=== PATIENT | female | born 2000 | race African-American/Black ===

== ENCOUNTER 2021-11-25 10:42 | Emergency (ER) | payer MEDICAID ==
[~2021-11-25] VITALS: Ht 160 cm; Wt 60.0 kg
[2021-11-25 11:11] VITALS: BP 107/72
== END 2021-11-25 15:10 | disposition home or self-care (01) ==
LOC: ER 10:42
DX: B34.9 Viral infection, unspecified (principal); D57.1 Sickle-cell disease without crisis
CPT/HCPCS: 99281

== ENCOUNTER 2022-03-14 11:36 | Emergency (ER) | payer MEDICAID ==
[~2022-03-14] VITALS: Ht 165.1 cm; Wt 70.0 kg
[2022-03-14] MEDS ORDERED: KETOROLAC 30MG/ML VIAL IV STA (12:18)
[2022-03-14 12:20] LABS: HEMATOCRIT. 39.8 % (36.0-48.0); HEMOGLOBIN. 13.8 g/dL (12.0-16.0); MEAN CORPUSCULAR HEMOGLOBIN 27.9 pg (28.0-32.0); MEAN CORPUSCULAR VOLUME 80.7 fL (81.0-99.0); PLATELET 338 x1000/uL (130-400); RED BLOOD CELL COUNT 4.93 mill/uL (4.2-5.4); RED CELL DISTRIBUTION WIDTH 12.9 % (11.6-14.6)
[2022-03-14 12:30] LABS: CLARITY URINE CLEAR (CLEAR); COLOR URINE YELLOW (YELLOW); KETONES URINE NEGATIVE (NEGATIVE); LEUKOCYTE ESTERASE URINE 1+ (NEGATIVE); NITRITE URINE NEGATIVE (NEGATIVE); OCCULT BLOOD URINE 1+ (NEGATIVE); PROTEIN URINE NEGATIVE (NEGATIVE); SPECIFIC GRAVITY URINE 1.015 (1.005-1.030)
[2022-03-14] MEDS ORDERED: SODIUM CHLORIDE 0.9% 1,000 ML IV ONE (12:30)
[2022-03-14 12:37] LABS: CHLORIDE 108 mEq/L (98-107)
[2022-03-14 12:48] LABS: PLATELET ESTIMATE NORMAL
[2022-03-14 12:49] LABS: HCG SCREEN NEGATIVE
[2022-03-14] MEDS ORDERED: DEXT30SU87 PO (13:20)
[2022-03-14] MEDS ORDERED: CEPH500C2 MT (13:20)
[2022-03-14] MEDS ORDERED: IBUP-2028 MT (13:20)
[2022-03-14] MEDS ORDERED: KETOROLAC 15MG/ML VIAL IV ONE (14:00)
[2022-03-14 14:18] VITALS: BP 118/83
[2022-03-15] MEDS ORDERED: P50 PO (10:37)
[2022-03-15] MEDS ORDERED: ALBU18HF2 INH (10:37)
[2022-03-15] MEDS ORDERED: ONDA4TAB5 PO (10:38)
[2022-03-15] MEDS ORDERED: IBUP-2028 MT (10:39)
[2022-03-15] MEDS ORDERED: TOPUD PO (10:39)
== END 2022-03-14 14:20 | disposition home or self-care (01) ==
LOC: ER 11:36
DX: R05.9 Cough, unspecified (principal); N39.0 Urinary tract infection, site not specified; J45.909 Unspecified asthma, uncomplicated
CPT/HCPCS: 36415; 71045; 80053; 81003; 84703; 85025; 85044; 96361; 96374; 96376; 99284; J1885; J7030

== ENCOUNTER 2022-03-15 08:35 | Emergency (ER) | payer MEDICAID ==
[~2022-03-15] VITALS: Ht 167.6 cm; Wt 55.0 kg
[~2022-03-15 08:35] MED LIST: CEPH500C2 MT; DEXT30SU87 PO; IBUP-2028 MT
[2022-03-15] MEDS ORDERED: ONDANSETRON 4MG ODT PO ONE (09:15)
[2022-03-15 09:36] LABS: HEMATOCRIT. 40.9 % (36.0-48.0); HEMOGLOBIN. 14.2 g/dL (12.0-16.0); MEAN CORPUSCULAR HEMOGLOBIN 28.2 pg (28.0-32.0); PLATELET 308 x1000/uL (130-400); RED BLOOD CELL COUNT 5.04 mill/uL (4.2-5.4); RED CELL DISTRIBUTION WIDTH 13.1 % (11.6-14.6)
[2022-03-15 09:43] LABS: CHLORIDE 109 mEq/L (98-107)
[2022-03-15 10:07] LABS: PLATELET ESTIMATE NORMAL
[2022-03-15] MEDS ORDERED: ALBU18HF2 INH (10:37)
[2022-03-15] MEDS ORDERED: P50 PO (10:37)
[2022-03-15] MEDS ORDERED: ONDA4TAB5 PO (10:38)
[2022-03-15] MEDS ORDERED: TOPUD PO (10:39)
[2022-03-15] MEDS ORDERED: IBUP-2028 MT (10:39)
[2022-03-15] MEDS ORDERED: ACETAMINOPHEN 325MG TABLET PO ONE (10:45)
[2022-03-15] MEDS ORDERED: IBUPROFEN 400MG TABLET PO ONE (10:45)
[2022-03-15 11:05] VITALS: BP 117/86
== END 2022-03-15 11:08 | disposition home or self-care (01) ==
LOC: ER 08:35
DX: M79.18 Myalgia, other site (principal); R05.9 Cough, unspecified; Z20.822 Contact with and (suspected) exposure to COVID-19; R00.0 Tachycardia, unspecified; R11.10 Vomiting, unspecified; R79.1 Abnormal coagulation profile; D57.3 Sickle-cell trait; J45.909 Unspecified asthma, uncomplicated
CPT/HCPCS: 36415; 71045; 80048; 85025; 85379; 87426; 93005; 99285; Q0162

== ENCOUNTER 2022-06-07 18:44 | Emergency (ER) | payer MEDICAID ==
[~2022-06-07] VITALS: Ht 162.6 cm; Wt 59.0 kg
[~2022-06-07 18:44] MED LIST changes: +ALBU18HF2 INH; +ONDA4TAB5 PO; +P50 PO; +TOPUD PO
[2022-06-07 19:16] VITALS: BP 128/83
[2022-06-07] MEDS ORDERED: TETRACAINE 0.5% OPHTH DROPS 4ML BOTHEYE ONE (21:15)
[2022-06-07] MEDS ORDERED: FLUORESCEIN SODIUM 1MG/STRIP BOTHEYE ONE (21:15)
[2022-06-07] MEDS ORDERED: SULF1TAB48 MT (21:18)
[2022-06-07] MEDS ORDERED: NAPR-1176 MT (21:18)
[2022-06-07] MEDS ORDERED: PEG15DRO14 EACHEYE (21:18)
== END 2022-06-07 21:27 | disposition home or self-care (01) ==
LOC: ER 18:44
DX: H00.014 Hordeolum externum left upper eyelid (principal)
CPT/HCPCS: 99281

== ENCOUNTER 2022-08-06 10:26 | Emergency (ER) | payer MEDICAID ==
[~2022-08-06] VITALS: Ht 160 cm; Wt 59.0 kg
[~2022-08-06 10:26] MED LIST changes: +NAPR-1176 MT; +PEG15DRO14 EACHEYE; +SULF1TAB48 MT
[2022-08-06 11:07] VITALS: BP 114/59
[2022-08-06] MEDS ORDERED: ALBUTEROL (0.083%) 2.5MG/3ML NEB HHN ONE (12:15)
[2022-08-06] MEDS ORDERED: CETIRIZINE 10MG TABLET PO SCH (13:00)
[2022-08-06] MEDS ORDERED: CETI10CA2 PO (14:08)
[2022-08-07] MEDS ORDERED: CETIRIZINE 10MG TABLET PO SCH (09:00)
== END 2022-08-06 14:35 | disposition home or self-care (01) ==
LOC: ER 10:26
DX: J06.9 Acute upper respiratory infection, unspecified (principal); J45.909 Unspecified asthma, uncomplicated; F17.210 Nicotine dependence, cigarettes, uncomplicated
CPT/HCPCS: 99282; Z7610

== ENCOUNTER 2022-09-17 11:05 | Emergency (ER) | payer MEDICAID ==
[~2022-09-17] VITALS: Ht 160 cm; Wt 50.0 kg
[~2022-09-17 11:05] MED LIST changes: +CETI10CA2 PO
[2022-09-17 11:12] VITALS: BP 117/72
[2022-09-17] MEDS ORDERED: MAGNESIUM/ALUMINUM HYDROXIDE/SIMETHICONE 30ML UDC PO STA (11:22)
[2022-09-17] MEDS ORDERED: ONDANSETRON HCL 4MG/2ML INJ IV STA (11:22)
[2022-09-17] MEDS ORDERED: SODIUM CHLORIDE 0.9% 1,000 ML IV ONE (11:30)
[2022-09-17 12:32] LABS: BASOPHILS % 0.9 % (0.0-2.0); EOSINOPHILS % 3.2 % (0.0-5.0); HEMATOCRIT. 42.8 % (36.0-48.0); HEMOGLOBIN. 14.5 g/dL (12.0-16.0); LYMPHOCYTES % 20.4 % (20.0-50.0); MEAN CORPUSCULAR VOLUME 82.7 fL (81.0-99.0); MEAN PLATELET VOLUME 7.7 fl (7.4-10.4); MONOCYTES % 3.4 % (2.0-8.0); NEUTROPHILS % 72.1 % (40.0-76.0); PLATELET 428 x1000/uL (130-400); RED BLOOD CELL COUNT 5.17 mill/uL (4.2-5.4); RED CELL DISTRIBUTION WIDTH 13.7 % (11.6-14.6)
[2022-09-17 12:33] LABS: CLARITY URINE CLEAR (CLEAR); COLOR URINE YELLOW (YELLOW); KETONES URINE NEGATIVE (NEGATIVE); LEUKOCYTE ESTERASE URINE 3+ (NEGATIVE); NITRITE URINE NEGATIVE (NEGATIVE); OCCULT BLOOD URINE 3+ (NEGATIVE); PH URINE 6.5 (4.5-8.0); PROTEIN URINE NEGATIVE (NEGATIVE); SPECIFIC GRAVITY URINE 1.019 (1.005-1.030)
[2022-09-17 12:56] LABS: HCG SCREEN NEGATIVE
[2022-09-17 13:25] LABS: *AMPHETAMINES SCREEN URINE NEGATIVE (NEGATIVE); *BARBITURATES SCREEN URINE NEGATIVE (NEGATIVE); *BENZODIAZEPINES SCREEN URINE NEGATIVE (NEGATIVE); *COCAINE SCREEN URINE NEGATIVE (NEGATIVE); METHADONE URINE SCREEN NEGATIVE (NEGATIVE); OPIATES URINE SCREEN NEGATIVE (NEGATIVE); PHENCYCLIDINE URINE SCREEN NEGATIVE (NEGATIVE)
[2022-09-17 13:32] LABS: CANNABINOID URINE SCREEN PRESUMTIVE POSITIVE (NEGATIVE)
[2022-09-17 14:20] LABS: CHLORIDE 108 mEq/L (98-107)
[2022-09-17 14:32] LABS: ETHANOL BLOOD < 10 mg/dL
[2022-09-17] MEDS ORDERED: ACET-2708 MT (14:49)
[2022-09-17] MEDS ORDERED: METO-293 MT (14:49)
== END 2022-09-17 15:09 | disposition home or self-care (01) ==
LOC: ER 11:05
DX: R11.2 Nausea with vomiting, unspecified (principal); R82.81 Pyuria; R53.1 Weakness; R51.9 Headache, unspecified; J45.909 Unspecified asthma, uncomplicated
CPT/HCPCS: 36415; 80053; 80305; 80320; 81003; 83690; 84703; 85025; 87077; 87086; 87804; 96361; 96374; 99283; J2405; J7030; G0480

== ENCOUNTER 2022-12-01 08:19 | Emergency (ER) | payer MEDICAID ==
[~2022-12-01] VITALS: Ht 160 cm; Wt 68.0 kg
[~2022-12-01 08:19] MED LIST changes: +ACET-2708 MT; +METO-293 MT
[2022-12-01 08:25] VITALS: BP 107/73
[2022-12-01] MEDS ORDERED: ONDANSETRON HCL 4MG/2ML INJ IV STA (08:40)
[2022-12-01] MEDS ORDERED: SODIUM CHLORIDE 0.9% 1,000 ML IV ONE (08:45)
[2022-12-01 09:28] LABS: BASOPHILS % 0.6 % (0.0-2.0); EOSINOPHILS % 9.5 % (0.0-5.0); HEMATOCRIT. 38.4 % (36.0-48.0); HEMOGLOBIN. 13.2 g/dL (12.0-16.0); LYMPHOCYTES % 30.5 % (20.0-50.0); MEAN CORPUSCULAR HEMOGLOBIN 28.4 pg (28.0-32.0); MEAN PLATELET VOLUME 7.4 fl (7.4-10.4); MONOCYTES % 4.5 % (2.0-8.0); NEUTROPHILS % 54.9 % (40.0-76.0); PLATELET 351 x1000/uL (130-400); RED BLOOD CELL COUNT 4.63 mill/uL (4.2-5.4); RED CELL DISTRIBUTION WIDTH 13.4 % (11.6-14.6)
[2022-12-01 09:37] LABS: CHLORIDE 109 mEq/L (98-107)
[2022-12-01 09:45] LABS: ETHANOL BLOOD < 10 mg/dL
[2022-12-01 09:48] LABS: HCG SCREEN NEGATIVE
[2022-12-01 10:15] LABS: CLARITY URINE CLOUDY (CLEAR); COLOR URINE YELLOW (YELLOW); KETONES URINE NEGATIVE (NEGATIVE); LEUKOCYTE ESTERASE URINE TRACE (NEGATIVE); NITRITE URINE NEGATIVE (NEGATIVE); OCCULT BLOOD URINE 2+ (NEGATIVE); PROTEIN URINE NEGATIVE (NEGATIVE); SPECIFIC GRAVITY URINE 1.015 (1.005-1.030); UROBILINOGEN URINE 0.2 E.U./dL (0.2-1.0)
[2022-12-01 10:51] LABS: *AMPHETAMINES SCREEN URINE NEGATIVE (NEGATIVE); *BARBITURATES SCREEN URINE NEGATIVE (NEGATIVE); *BENZODIAZEPINES SCREEN URINE NEGATIVE (NEGATIVE); *COCAINE SCREEN URINE NEGATIVE (NEGATIVE); METHADONE URINE SCREEN NEGATIVE (NEGATIVE); OPIATES URINE SCREEN NEGATIVE (NEGATIVE); PHENCYCLIDINE URINE SCREEN NEGATIVE (NEGATIVE)
[2022-12-01 10:56] LABS: CANNABINOID URINE SCREEN PRESUMTIVE POSITIVE (NEGATIVE)
[2022-12-01] MEDS ORDERED: OMEP20CA14 MT (12:09)
[2022-12-01] MEDS ORDERED: NITR-87 MT (12:09)
[2022-12-01] MEDS ORDERED: ONDA4TAB11 PO (12:09)
== END 2022-12-01 12:43 | disposition home or self-care (01) ==
LOC: ER 08:19
DX: R11.2 Nausea with vomiting, unspecified (principal); R63.1 Polydipsia
CPT/HCPCS: 36415; 80053; 80305; 80320; 81003; 81025; 83690; 84703; 85025; 96361; 96374; 99283; J2405; J7030; G0480

== ENCOUNTER 2022-12-08 11:06 | Emergency (ER) | payer MEDICAID ==
[~2022-12-08] VITALS: Ht 165.1 cm; Wt 75.0 kg
[~2022-12-08 11:06] MED LIST changes: +NITR-87 MT; +OMEP20CA14 MT; +ONDA4TAB11 PO
[2022-12-08 11:10] VITALS: BP 126/89
[2022-12-08] MEDS ORDERED: ONDANSETRON HCL 4MG TABLET PO ONE (13:00)
[2022-12-08 13:11] LABS: BASOPHILS % 0.3 % (0.0-2.0); EOSINOPHILS % 7.9 % (0.0-5.0); HEMATOCRIT. 42.9 % (36.0-48.0); HEMOGLOBIN. 15.1 g/dL (12.0-16.0); LYMPHOCYTES % 22.1 % (20.0-50.0); MEAN CORPUSCULAR VOLUME 82.3 fL (81.0-99.0); MEAN PLATELET VOLUME 7.3 fl (7.4-10.4); MONOCYTES % 4.5 % (2.0-8.0); NEUTROPHILS % 65.2 % (40.0-76.0); PLATELET 410 x1000/uL (130-400); RED BLOOD CELL COUNT 5.21 mill/uL (4.2-5.4); RED CELL DISTRIBUTION WIDTH 13.1 % (11.6-14.6)
[2022-12-08 13:15] LABS: CHLORIDE 104 mEq/L (98-107)
[2022-12-08 13:17] LABS: CLARITY URINE CLEAR (CLEAR); COLOR URINE YELLOW (YELLOW); KETONES URINE 1+ (NEGATIVE); LEUKOCYTE ESTERASE URINE NEGATIVE (NEGATIVE); NITRITE URINE NEGATIVE (NEGATIVE); OCCULT BLOOD URINE NEGATIVE (NEGATIVE); PH URINE 7.5 (4.5-8.0); PROTEIN URINE NEGATIVE (NEGATIVE); SPECIFIC GRAVITY URINE 1.015 (1.005-1.030); UROBILINOGEN URINE 0.2 E.U./dL (0.2-1.0)
[2022-12-08 13:42] LABS: HCG SCREEN NEGATIVE
[2022-12-08] MEDS ORDERED: ONDA4TAB50 MT (13:43)
== END 2022-12-08 13:57 | disposition home or self-care (01) ==
LOC: ER 11:06
DX: R11.2 Nausea with vomiting, unspecified (principal)
CPT/HCPCS: 36415; 80053; 81003; 81025; 83690; 84703; 85025; 99283; Q0162

== ENCOUNTER 2023-03-22 11:31 | Emergency (ER) | payer MEDICAID ==
[~2023-03-22] VITALS: Ht 160 cm; Wt 54.0 kg
[~2023-03-22 11:31] MED LIST changes: +ONDA4TAB50 MT
[2023-03-22 11:54] VITALS: BP 123/79
[2023-03-22] MEDS ORDERED: IBUPROFEN 600MG TABLET PO ONE (12:15)
[2023-03-22] MEDS ORDERED: LORATADINE 10MG TABLET PO SCH (12:15)
== END 2023-03-22 13:40 | disposition home or self-care (01) ==
LOC: ER 12:31
DX: S63.601A Unspecified sprain of right thumb, initial encounter (principal); W18.39XA Other fall on same level, initial encounter; Y93.89 Activity, other specified; Y92.89 Other specified places as the place of occurrence of the external cause; Y99.8 Other external cause status; J45.909 Unspecified asthma, uncomplicated; Z79.899 Other long term (current) drug therapy
CPT/HCPCS: 73130; 81025; 99283

== ENCOUNTER 2024-02-21 13:41 | Emergency (ER) | payer BC ==
[~2024-02-21] VITALS: Ht 160 cm; Wt 59.0 kg
[2024-02-21 14:02] VITALS: BP 109/89; PULSE 88; RESP 16; TEMP 98.2; O2SAT 98
[2024-02-21 14:31] LABS: BASOPHILS % 0.7 % (0.0-2.0); EOSINOPHILS % 6.6 % (0.0-5.0); HEMATOCRIT. 41.9 % (36.0-48.0); HEMOGLOBIN. 14.3 g/dL (12.0-16.0); LYMPHOCYTES % 26.5 % (20.0-50.0); MEAN CORPUSCULAR HEMOGLOBIN 28.3 pg (28.0-32.0); MEAN CORPUSCULAR HGB CONC 34.1 g/dL (31.0-37.0); MEAN PLATELET VOLUME 7.4 fl (7.4-10.4); MONOCYTES % 5.8 % (2.0-8.0); NEUTROPHILS % 60.4 % (40.0-76.0); PLATELET 454 x1000/uL (130-400); RED BLOOD CELL COUNT 5.05 mill/uL (4.2-5.4); RED CELL DISTRIBUTION WIDTH 13.7 % (11.6-14.6); WHITE BLOOD COUNT 9.2 x1000/uL (4.5-11.0)
[2024-02-21 14:43] LABS: ALANINE AMINOTRANSFERASE 13 IU/L (10-49); ALBUMIN 4.6 g/dL (3.2-4.8); ASPARTATE AMINOTRANSFERASE 19 IU/L (<34); CARBON DIOXIDE 26 mEq/L (21-32); CHLORIDE 105 mEq/L (98-107); CREATININE 0.8 mg/dL (0.6-1.0); GLUCOSE 52 mg/dL (70-105); POTASSIUM 3.8 mEq/L (3.5-5.1); PROTEIN TOTAL 8.1 g/dL (6.0-8.3); SODIUM 138 mEq/L (136-145); UREA NITROGEN BLOOD 10 mg/dL (9-23)
[2024-02-21 15:12] LABS: CLARITY URINE CLOUDY (CLEAR); COLOR URINE YELLOW (YELLOW); GLUCOSE URINE NEGATIVE (NEGATIVE); KETONES URINE NEGATIVE (NEGATIVE); LEUKOCYTE ESTERASE URINE NEGATIVE (NEGATIVE); NITRITE URINE NEGATIVE (NEGATIVE); OCCULT BLOOD URINE NEGATIVE (NEGATIVE); PROTEIN URINE NEGATIVE (NEGATIVE); SPECIFIC GRAVITY URINE 1.019 (1.005-1.030)
[2024-02-21 15:27] LABS: BACTERIA URINE 3+; RBC URINE 0-2 /hpf (0-2); SQUAMOUS EPITHELIAL CELL URINE 3+ /lpf (RARE/1+); YEAST URINE NONE SEEN
[2024-02-21] MEDS ORDERED: PANTOPRAZOLE SODIUM 40 MG/VIAL IV NR (16:33)
[2024-02-21] MEDS ORDERED: ONDA4TAB50 MT (16:42)
[2024-02-21] MEDS ORDERED: SODIUM CHLORIDE 0.9% 1,000 ML IV ONE (16:45)
[2024-02-21] MEDS ORDERED: DIPHENHYDRAMINE 50MG/ML VIAL IV NR (16:45)
[2024-02-21 16:52] LABS: HCG SCREEN NEGATIVE
[2024-02-21] MEDS ORDERED: ONDANSETRON 4MG ODT PO ONE (17:00)
[2024-02-21] MEDS: PROCHLORPERAZINE 10MG/2ML VIAL IV NR (17:10)
[2024-02-21] MEDS: METOCLOPRAMIDE HCL 10MG/2ML VIAL IM ONE (17:10)
[2024-02-21] MEDS: MAGNESIUM/ALUMINUM HYDROXIDE/SIMETHICONE 30ML UDC PO ONE (17:10)
[2024-02-21] MEDS: ONDANSETRON 4MG ODT PO NR (17:10)
== END 2024-02-21 18:10 | disposition home or self-care (01) ==
LOC: ER 13:52
DX: R11.2 Nausea with vomiting, unspecified (principal); J45.909 Unspecified asthma, uncomplicated
CPT/HCPCS: 99284; 96374; 80053; 81003; 81025; 84703; 83690; 85025; 36415; 96372; Q0162; J1200; J2765; C9113; J0780

== ENCOUNTER 2024-03-24 18:43 | Emergency (ER) | payer BC ==
[~2024-03-24] VITALS: Ht 160 cm; Wt 57.5 kg
[2024-03-24 19:13] VITALS: O2SAT 98
[2024-03-24 21:20] VITALS: TEMP 97.9
[2024-03-24 21:21] LABS: BASOPHILS % 0.8 % (0.0-2.0); EOSINOPHILS % 2.8 % (0.0-5.0); HEMATOCRIT. 39.3 % (36.0-48.0); MEAN CORPUSCULAR HEMOGLOBIN 27.5 pg (28.0-32.0); MEAN CORPUSCULAR HGB CONC 33.2 g/dL (31.0-37.0); MEAN CORPUSCULAR VOLUME 82.9 fL (81.0-99.0); MEAN PLATELET VOLUME 7.1 fl (7.4-10.4); MONOCYTES % 7.6 % (2.0-8.0); NEUTROPHILS % 61.8 % (40.0-76.0); PLATELET 430 x1000/uL (130-400); RED BLOOD CELL COUNT 4.73 mill/uL (4.2-5.4); RED CELL DISTRIBUTION WIDTH 13.3 % (11.6-14.6); WHITE BLOOD COUNT 12.5 x1000/uL (4.5-11.0)
[2024-03-24 21:25] LABS: CHLORIDE 106 mEq/L (98-107); POTASSIUM 3.6 mEq/L (3.5-5.1); SODIUM 140 mEq/L (136-145)
[2024-03-24 21:26] LABS: CARBON DIOXIDE 27 mEq/L (21-32)
[2024-03-24 21:27] LABS: CALCIUM 8.8 mg/dL (8.7-10.4)
[2024-03-24 21:30] LABS: CLARITY URINE CLEAR (CLEAR); COLOR URINE YELLOW (YELLOW); GLUCOSE URINE NEGATIVE (NEGATIVE); KETONES URINE TRACE (NEGATIVE); OCCULT BLOOD URINE NEGATIVE (NEGATIVE); PROTEIN URINE NEGATIVE (NEGATIVE); SPECIFIC GRAVITY URINE 1.016 (1.005-1.030)
[2024-03-24 21:31] LABS: LEUKOCYTE ESTERASE URINE NEGATIVE (NEGATIVE); NITRITE URINE NEGATIVE (NEGATIVE)
[2024-03-24 21:32] LABS: CREATININE 0.6 mg/dL (0.6-1.0); GLUCOSE 82 mg/dL (70-105); UREA NITROGEN BLOOD 8 mg/dL (9-23)
[2024-03-24] MEDS ORDERED: BROM118S47 PO (23:05)
[2024-03-24] MEDS: GUAIFENESIN-DM 200MG-20MG/10ML UDC PO ONE (23:21)
[2024-03-24 23:27] VITALS: BP 122/81; PULSE 55; RESP 17
== END 2024-03-24 23:33 | disposition home or self-care (01) ==
LOC: ER 18:43
DX: R05.9 Cough, unspecified (principal); J45.909 Unspecified asthma, uncomplicated; Z79.899 Other long term (current) drug therapy
CPT/HCPCS: 80048; 81003; 81025; 85025; 36415; 71045; 99284; Z7610 ×2

== ENCOUNTER 2025-05-27 20:12 | Emergency (ER) | payer BC, MEDICAID ==
[~2025-05-27] VITALS: Ht 160 cm; Wt 59.0 kg
[~2025-05-27 20:12] MED LIST changes: +BROM118S47 PO; +ONDA-239 PO; -ONDA4TAB11 PO
[2025-05-27] MEDS ORDERED: ONDANSETRON 4MG ODT PO ONE (21:15)
[2025-05-27 21:28] LABS: BASOPHILS % 0.5 % (0.0-2.0); EOSINOPHILS % 1.7 % (0.0-5.0); HEMATOCRIT. 38.4 % (36.0-48.0); LYMPHOCYTES % 16.4 % (20.0-50.0); MEAN CORPUSCULAR HEMOGLOBIN 27.6 pg (28.0-32.0); MEAN CORPUSCULAR HGB CONC 33.8 g/dL (31.0-37.0); MEAN CORPUSCULAR VOLUME 81.5 fL (81.0-99.0); NEUTROPHILS % 76.4 % (40.0-76.0); PLATELET 387 x1000/uL (130-400); RED BLOOD CELL COUNT 4.72 mill/uL (4.2-5.4); RED CELL DISTRIBUTION WIDTH 13.2 % (11.6-14.6); WHITE BLOOD COUNT 10.6 x1000/uL (4.5-11.0)
[2025-05-27 21:36] VITALS: BP 109/78; PULSE 94; RESP 20; TEMP 37.3; O2SAT 100
[2025-05-27 21:37] LABS: CHLORIDE 104 mEq/L (98-107); POTASSIUM 3.4 mEq/L (3.5-5.1); SODIUM 139 mEq/L (136-145)
[2025-05-27 21:38] LABS: CARBON DIOXIDE 24 mEq/L (21-32)
[2025-05-27 21:39] LABS: CALCIUM 9.4 mg/dL (8.7-10.4)
[2025-05-27 21:43] LABS: CREATININE 0.6 mg/dL (0.6-1.0); GLUCOSE 83 mg/dL (70-105)
[2025-05-27 21:44] LABS: UREA NITROGEN BLOOD 8 mg/dL (9-23)
[2025-05-27 21:45] LABS: ALANINE AMINOTRANSFERASE 10 IU/L (10-49); ALBUMIN 4.5 g/dL (3.2-4.8); ASPARTATE AMINOTRANSFERASE 15 IU/L (<34)
[2025-05-27 21:46] LABS: BILIRUBIN DIRECT 0.2 mg/dL (<=3.0); BILIRUBIN TOTAL 0.8 mg/dL (0.1-1.0); PROTEIN TOTAL 7.2 g/dL (6.0-8.3)
[2025-05-27] MEDS: ONDANSETRON HCL 4MG/2ML INJ IV ONE (21:57)
[2025-05-27] MEDS: ACETAMINOPHEN 500MG TABLET PO ONE (22:09)
[2025-05-27] MEDS: SODIUM CHLORIDE 0.9% 1,000 ML IV ONE (22:09)
[2025-05-27] MEDS ORDERED: ONDA4TAB50 MT (23:05)
== END 2025-05-27 23:45 | disposition home or self-care (01) ==
LOC: ER 20:12
DX: O21.1 Hyperemesis gravidarum with metabolic disturbance (principal); O99.281 Endocrine, nutritional and metabolic diseases complicating pregnancy, first trimester; J45.909 Unspecified asthma, uncomplicated; Z79.1 Long term (current) use of non-steroidal anti-inflammatories (NSAID); Z79.52 Long term (current) use of systemic steroids; Z79.899 Other long term (current) drug therapy; Z3A.01 Less than 8 weeks gestation of pregnancy
CPT/HCPCS: 80076; 80048; 84702; 83690; 85025; 36415; 96361; 96374; 99283; Q0162; J2405; J7030; Z7610 ×2